=== PATIENT | male | born 1945 | race Caucasian/White ===

== ENCOUNTER 2016-07-28 09:27 | Emergency (ER) | payer OTHER ==
--- NOTE | ~2016-07-28 | EKG ---
PATIENT: CHRISTOPHER CORREA UNIT #: [id number] Ventricular Rate: 72 BPM Atrial Rate: 72 BPM P-R Interval: 152 ms QRS Duration: 76 ms Q-T Interval: 400 ms QTC Calculation(Bezet): 438 ms P Stark: 62 degrees Calculated R Stark: 29 degrees Calculated T Stark: 50 degrees Diagnosis Line: Normal sinus rhythm Diagnosis Line: Early R Wave Transition Diagnosis Line: Borderline ECG Diagnosis Line: Diagnosis Line: Confirmed by ASHLYN CHRIS MD ([id number]) on Diagnosis Line: 07/29/2016 7:22:21 AM INTERPRETING MD: MARIELLA
--- NOTE | ~2016-07-28 | CT71 ---
[facility] A Service of [facility] RADIOLOGY TEXT RESULTS PATIENT: CHRISTOPHER CORREA LOCATION: [facility] : 49 UNIT #: [id number] AGE: [address]: Bert Sinclair MD SEX: M ORDER DR: [id number] [facility] [address] [place], [place] [address] [id number] E MR#: [id number] Acc #: [id number] NAME: CHRISTOPHER CORREA : 1945 SEX: M STUDY DATE/TIME: 07/28/2016 14:03 UNIT: [facility] ROOM: STUDY DESCRIPTION: CT Head Wo Contrast Attending Physician: Bert Sinclair M.D. Referring Physician: Kenneth Self Referred Ordering Physician: Bert Sinclair M.D. Primary Care Physician: No Primary Care Physician MEDICAL IMAGING REPORT This report is preliminary unless electronic signature is present EXAM CT head without contrast DATE 07/28/2016 HISTORY Unwitnessed fall, collapsed at long-term facility, complains of headache today with increased confusion. Dementia. Hypertension. COMPARISON Noncontrast CT head 01/24/2013. TECHNIQUE This CT exam was performed with one or more of the following radiation dose reduction techniques: automatic control, adjustment of mA and/or kV according to patient size, and iterative reconstruction. FINDINGS Left maxillary sinus mucous retention cyst or polyp is present. Mastoid air cells are clear. No displaced calvarial fracture is seen. No acute intracranial hemorrhage, mass lesion, mass effect or midline shift. Moderate chronic microvascular disease changes. Chronic-appearing infarct within the left internal capsule left subinsular region, but no convincing evidence of acute infarct. There is moderate generalized atrophy with compensatory prominence of the ventricles and extraaxial spaces. The degree of atrophy appears to progress slightly since the 01/24/2013 examination. A few of the images particularly near the vertex of the skull, are mildly motion degraded. There is moderate intracranial carotid artery calcification. [facility] A Service of [facility] RADIOLOGY TEXT RESULTS PATIENT: CHRISTOPHER CORREA LOCATION: [facility] : 49 UNIT #: [id number] AGE: [address]: Bert Sinclair MD SEX: M ORDER DR: IMPRESSION 1. No acute intracranial findings. 2. Moderate atrophy which appears to progress since 01/24/2013. Moderate chronic microvascular disease changes. 3. Chronic-appearing lacunar infarcts in the left subinsular region and within the left internal capsule. Dictated by... Tammy Berg M.D. THIS IS AN ELECTRONICALLY VERIFIED REPORT Tammy Berg M.D. at 07/29/2016 8:36 AM [facility]/sammi TD: 07/28/2016 15:50 JOB #: [id number] MEDICAL IMAGING REPORT Page 1 of 1 COPY
--- NOTE | ~2016-07-28 | CR151 ---
[facility] A Service of [facility] RADIOLOGY TEXT RESULTS PATIENT: CHRISTOPHER CORREA LOCATION: [facility] : 47 UNIT #: [id number] AGE: [address]: Bert Sinclair MD SEX: M ORDER DR: [id number] [facility] [address] [place], [place] [address] [id number] E MR#: [id number] Acc #: [id number] NAME: CHRISTOPHER CORREA : 1945 SEX: M STUDY DATE/TIME: 07/28/2016 11:16 UNIT: [facility] ROOM: STUDY DESCRIPTION: CR Hip Min 2 Views Rt Attending Physician: Bert Sinclair M.D. Referring Physician: Kenneth Self Referred Ordering Physician: Bert Sinclair M.D. Primary Care Physician: No Primary Care Physician MEDICAL IMAGING REPORT This report is preliminary unless electronic signature is present EXAM 3 views right hip INDICATION Pain in the right hip after the patient fell today. FINDINGS There is some subtle irregularity seen within the right superior pubic ramus which certainly could reflect a fracture given history of trauma. In addition, I think on single view only there is a single lucency seen traversing the ischium which may reflect a nondisplaced fracture. No additional fractures are seen. Patient is status post right hip arthroplasty as well as lumbosacral spinal fusion. There is some mild degenerative changes seen within the left hip and there is some degenerative changes also involving the sacroiliac joints. Patient's total hip replacement does appear somewhat subluxed superiorly. This is a chronic appearance. IMPRESSION Subtle irregularity of the superior pubic ramus may reflect nondisplaced fractures. There is also a subtle lucency seen involving the ischium which may reflect an additional nondisplaced fracture. Dictated by... Zena Sherman M.D. THIS IS AN ELECTRONICALLY VERIFIED REPORT Zena Sherman M.D. at 07/30/2016 3:26 PM AFF/aa TD: 07/30/2016 09:01 JOB #: [id number] [facility] A Service of [facility] RADIOLOGY TEXT RESULTS PATIENT: CHRISTOPHER CORREA [id number] [birth year] UNIT #: [id number] AGE: [address]: Bert Sinclair MD SEX: M ORDER DR: MEDICAL IMAGING REPORT Page 1 of 1 COPY
--- NOTE | ~2016-07-28 | CR72 ---
[facility] A Service of [facility] RADIOLOGY TEXT RESULTS PATIENT: CHRISTOPHER CORREA LOCATION: [facility] : 49 UNIT #: [id number] AGE: [address]: Bert Sinclair MD SEX: M ORDER DR: [id number] [facility] [address] [place], [place] [address] [id number] E MR#: [id number] Acc #: [id number] NAME: CHRISTOPHER CORREA : 1945 SEX: M STUDY DATE/TIME: 07/28/2016 10:50 UNIT: [facility] ROOM: STUDY DESCRIPTION: CR Chest Single View Portable Attending Physician: Bert Sinclair M.D. Referring Physician: Self Referral-Refer Use Only Ordering Physician: Bert Sinclair M.D. Primary Care Physician: Primary Care Physician No MEDICAL IMAGING REPORT This report is preliminary unless electronic signature is present EXAM AP portable chest DATE 07/28/2016 at 10:50 HISTORY Shortness breath and weakness after falling today. Dementia. COMPARISON PA and lateral chest radiograph 05/25/2006 FINDINGS No acute airspace disease is seen. Heart size is within normal limits. No pleural effusion or pneumothorax is identified. Mild degenerative spurring of the undersurface of the glenohumeral joints. Degenerative spurring in the thoracic spine. IMPRESSION No acute cardiopulmonary findings. Dictated by... Tammy Berg M.D. THIS IS AN ELECTRONICALLY VERIFIED REPORT Tammy Berg M.D. at 07/29/2016 8:[address] [facility]/armin TD: 07/28/2016 13:33 JOB #: [id number] MEDICAL IMAGING REPORT Page 1 of 1 COPY
[2016-07-28 10:10] LABS: BASOPHIL% 0.3 % (0-2.5); EOSINOPHIL# 0.7 X10e3 (0-0.7); EOSINOPHIL% 8.3 % (0.0-7.0); HEMATOCRIT 40.7 % (38.0-50.0); HEMOGLOBIN 13.5 gm/dL (13.0-16.0); LYMPHOCYTE# 1.3 X10e3 (1.0-3.5); LYMPHOCYTE% 15.9 % (17.0-45.0); MEAN CELL VOLUME 91.8 FL (83-96); MEAN CORPUSCULAR HEMOGLOBIN 30.5 PG (28-34); MEAN CORPUSCULAR HGB CONC 33.3 g/dL (30-36); MEAN PLATELET VOLUME 7.9 FL (6.5-11.5); MONOCYTE# 0.5 X10e3 (0-1.0); MONOCYTE% 6.4 % (3.0-12.0); NEUTROPHIL# 5.5 X10e3 (1.5-7.1); NEUTROPHIL% 69.1 % (40-75); PLATELET COUNT 226 X10e3 (140-420); RED BLOOD COUNT 4.44 X10e (3.90-5.60); RED CELL DISTRIBUTION WIDTH 13.8 % (11.0-15.5)
[2016-07-28 10:14] LABS: DIFF IND NO
[2016-07-28 10:40] LABS: ALBUMIN SERUM 3.6 g/dL (3.5-5.0); BILIRUBIN,TOTAL 0.5 mg/dL (0.2-2.0); CALCIUM SERUM 9.1 mg/dL (8.4-10.2); GLOM FILT RATE Estimated 76.5 mL/min (>60); PROTEIN TOTAL SERUM 6.2 g/dL (6.0-8.3)
[2016-07-28 13:57] LABS: URINE SOURCE CLEAN CATCH
[2016-07-28 14:04] LABS: URINE APPEARANCE TURBID; URINE BILIRUBIN NEG (NEG); URINE BLOOD TRACE (NEG); URINE COLOR YELLOW; URINE GLUCOSE NEG (NEG); URINE KETONE NEG (NEG); URINE LEUKOCYTE ESTERASE 2+ (NEG); URINE NITRATE POS (NEG); URINE PH 7.5 (5-8); URINE PROTEIN NEG (NEG); URINE SPECIFIC GRAVITY 1.015 (1.003-1.035)
[2016-07-28 14:08] LABS: CULTURE INDICATED? YES; URBCS1 AUWI 25-50 /[HPF] (0-2); URINE BACTERIA AUWI 4+ (NEGATIVE); URINE SQUAMOUS EPITHELIAL CELL MOD /[HPF]
== END 2016-07-28 16:15 | disposition home or self-care (01) ==
LOC: CED 09:27
PROVIDERS: Emergency Medicine
DX: I95.9 Hypotension, unspecified (principal); S32.591A Other specified fracture of right pubis, initial encounter for closed fracture; F03.90 Unspecified dementia, unspecified severity, without behavioral disturbance, psychotic disturbance, mood disturbance, and anxiety; X58.XXXA Exposure to other specified factors, initial encounter
CPT/HCPCS: 36415; 70450; 71010; 73502; 80053; 81003; 85025; 87086; 93005; 96361; 96365; 99285; J0696